=== PATIENT | male | born 1960 | race Caucasian/White ===

== ENCOUNTER 2016-11-07 17:00 | Inpatient (IN) | payer OTHER ==
[~2016-11-07] VITALS: Ht 172.7 cm; Wt 56.7 kg
--- NOTE | ~2016-11-07 | PA ---
Unit #: [id number] #: [id number] Patient: DANIEL VASQUEZ [id number] [facility] [address] [place] [address] [id number] MR#: [id number] NAME: DANIEL VASQUEZ ROOM: P214 Age: 56 Sex: M Admission Date: 11/07/2016 : 1960 Date of Assessment: Attending Physician: Bismark Anaya M.D. Admitting Physician: Bismark Anaya M.D. Primary Care Physician: Primary Care Physician No PSYCHIATRIC ASSESSMENT DATE OF SERVICE 11/08/2016. IDENTIFYING DATA Mr. Vasquez is a 56-year-old single white male, who is a resident of [place], [place], and was self-referred to the hospital on a voluntary basis. CHIEF COMPLAINT "I've been court ordered to be assessed." HISTORY OF PRESENT ILLNESS Mr. Vasquez is a 56-year-old white male with history of alcohol dependence, who was self-referred to the hospital. He reports that he has been court ordered to be assessed due to DUI and that he has been on disability and has lost significant other who from an overdose, and his father is disabled and his brother has been taking care of his father, and the patient reports artie AIDS in 09/2014, and he has 2 children that he is close to and that he has been struggling with depression and anxiety and does report feelings of hopelessness and helplessness and suicidal ideation and that he has attempted to kill himself in the garage with the car running and the car turned itself off due to carbon dioxide sensor and the patient reports having a history of suicidal thoughts and that when he was diagnosed with AIDS, he started to have suicidal thoughts and was seen to be a significant threat to himself and as such, a recommendation for inpatient level of care for safety and stabilization was made. SUBSTANCE ABUSE HISTORY The patient reports history of experimentation with methamphetamine and cannabis, but reports alcohol to be his drug of choice stating that he has been drinking a pint of whiskey a day and two beers and reports alcohol to be his drug of choice. PAST PSYCHIATRIC HISTORY The patient has a history of inpatient chemical [facility] and has been diagnosed and treated for alcohol dependence. Review of the medical records, currently he is not active in any treatment program, though he is supposed to be on a combination of Remeron, Vistaril, and Elavil. PAST MEDICAL HISTORY The patient's medical history is significant for AIDS and COPD. Unit #: [id number] #: [id number] Patient: DANIEL VASQUEZ ALLERGIES No known medication allergies. PERSONAL AND SOCIAL HISTORY A 56-year-old white male, who reports that he lives at home with his roommate and has fairly decent social support system. MENTAL STATUS EXAMINATION Young white male, who was casually dressed with fair personal hygiene, appears to be in no acute distress or discomfort. He was awake and alert with impaired attention and concentration. His mood was anxious and depressed with a congruent affect. His speech was slow and restricted in content. His thought processes were disorganized with some looseness of associations and suicidal ideations. His insight and judgment remain significantly impaired. DIAGNOSTIC IMPRESSION Psychiatric: Alcohol dependence, moderate, in acute withdrawals and alcohol-induced mood disorder. Medical: Chronic obstructive pulmonary disease and acquired immune deficiency syndrome. Stressors: Moderate psychosocial stressors. TREATMENT PLAN 1. The patient has presented with a history of mood disorder and substance abuse and has been decompensating and will need inpatient hospitalization for safety and stabilization. We will start him back on his home medications. We will adjust the medications and monitor response and make further adjustments as needed. 2. Supportive therapy was provided to the patient. ESTIMATED LENGTH OF STAY 5 to 7 days. ABILITY TO HELP SELF Limited. WILLINGNESS TO HELP SELF The patient appears to be willing to help self. STRENGTHS 1. Communicative. 2. Cooperative. PROBLEMS 1. Chronic dysphoric symptoms. 2. Poor social support system. DISCHARGE CRITERIA This will be contingent upon the patient's ability to show resolution of his depression and anxiety and his ability to stay safe to himself, particularly after discharge from the hospital. Dictated by... Nohemi Colby/alessia Unit #: [id number] #: [id number] Patient: DANIEL VASQUEZ TD: 11/08/2016 13:37 JOB #: [id number] PSYCHIATRIC ASSESSMENT Page 1 of 1 X JaclynBismark Arnold MD X PSYCHIATRIC ASSESSMENT
--- NOTE | ~2016-11-07 | PN ---
Unit #: [id number] #: [id number] Patient: DANIEL VASQUEZ [id number] [facility] [address] [place] [address] [id number] I MR#: [id number] NAME: DANIEL VASQUEZ. ROOM: P214 Age: 56 Sex: M Admission Date: 11/07/2016 : 1960 Attending Physician: Bismark Anaya M.D. Admitting Physician: Bismark Anaya M.D. Primary Care Physician: Primary Care Physician Sandra TUCKER NOTES DATE OF SERVICE 11/09/2016 DISCUSSION Mr. Vasquez is a 56-year-old white male with alcohol dependence who was seen today. Chart was reviewed and case was discussed with the staff. He was seen to be anxious, withdrawn, and seclusive to himself. He does appear to be in distress and discomfort and going through detox. Meanwhile, he has been taking the medications and tolerating them fairly well with no reported side effects. MENTAL STATUS EXAMINATION Middle-aged white male who is casually dressed with fair personal hygiene, appears to be in no acute distress or discomfort. He was awake and alert with impaired attention and concentration. His mood is anxious with congruent affect. He denies any suicidal or homicidal ideations. His insight and judgment remain slightly impaired. TREATMENT PLAN 1. We will continue him on his current medications and treatment protocol. We will monitor his response to the medications and make further adjustments as needed. 2. We will continue to follow up. Dictated by... Nohemi Colby/avanig TD: 11/10/2016 08:01 JOB #: [id number] Unit #: [id number] #: [id number] Patient: DANIEL VASQUEZ [facility] PROGRESS NOTES Page 1 of 1 X Bismark Anaya MD PROGRESS NOTE
--- NOTE | ~2016-11-07 | DS ---
Unit #: [id number] #: [id number] Patient: DANIEL SYLVESTER [id number] [facility] [address] [place] [address] [id number] I MR#: [id number] NAME: DANIEL SYLVESTER ROOM: P214 Age: 56 Sex: M Admission Date: 11/07/2016 : 1960 Discharge Date: 11/11/2016 Attending Physician: Bismark Anaya M.D. Primary Care Physician: Primary Care Physician No DISCHARGE SUMMARY IDENTIFYING DATA Mr. Sylvester is a 56-year-old single white male, who is a resident of [place], [place], and was self-referred to the hospital on a voluntary basis. DISCHARGE DIAGNOSES Psychiatric: Alcohol dependence, moderate and acute withdrawals; alcohol-induced mood disorder. Medical: Chronic obstructive pulmonary disease and human immunodeficiency virus. Stressors: Moderate psychosocial stressors. HISTORY OF PRESENT ILLNESS Please see initial psychiatric evaluation for details. PAST PSYCHIATRIC HISTORY Please see initial psychiatric evaluation for details. PAST MEDICAL HISTORY Please see initial psychiatric evaluation for details. HOSPITAL COURSE The patient was admitted to the adult chemical dependency unit at [facility] and was oriented to the hospital environment. Routine p.r.n. medications were initiated, and he was started back on his home medications and medications were adjusted and he was closely monitored. He was taking the medications regularly and was tolerating them fairly well and was able to show a decent and therapeutic response and as such, it was decided that he will be discharged home and will continue treatment on an outpatient basis. DISCHARGE MEDICATIONS None. DISCHARGE CONDITION Stable. PROGNOSIS Fair. Dictated by... Bismark Anaya M.D. Unit #: [id number] #: [id number] Patient: DANIEL SYLVESTER IAA/modl TD: 11/11/2016 07:13 JOB #: [id number] DISCHARGE SUMMARY Page 1 of 1 X Bismark Anaya MD X DISCHARGE SUMMARY
--- NOTE | ~2016-11-07 | PN ---
Unit #: [id number] #: [id number] Patient: DANIEL VASQUEZ [id number] [facility] [address] [place] [address] [id number] MR#: [id number] NAME: DANIEL VASQUEZ ROOM: P214 Age: 56 Sex: M Admission Date: 11/07/2016 : 1960 Attending Physician: Bismark Anaya M.D. Admitting Physician: Bismark Anaya M.D. Primary Care Physician: Primary Care Physician Sandra TUCKER NOTES IDENTIFYING DATA Mr. Vasquez is a 56-year-old male who was seen today and chart reviewed and his case discussed with the staff. He was anxious, withdrawn, and seclusive to himself. Meanwhile, he has been cooperating with treatment recommendations and taking medication and tolerating them fairly well with no reported side effects. MENTAL STATUS EXAMINATION Middle-aged white male, who was casually dressed with fair personal hygiene, appears to be in no acute distress or discomfort. He was awake and alert on interaction with intact orientation. His mood was anxious with a congruent affect. suicidal or homicidal ideation, visual hallucinations. . TREATMENT PLAN 1. We will continue him on his current treatment protocol. We will monitor his response to the medications and make further adjustments as needed. 2. We will continue to follow up. Dictated by... Nohemi Colby/alessia TD: 11/10/2016 13:55 JOB #: [id number] [facility] PROGRESS NOTES Page 1 of 1 X Bismark Anaya MD PROGRESS NOTE
--- NOTE | ~2016-11-07 | HP ---
Unit #: [id number] #: [id number] Patient: DANIEL SYLVESTER [id number] [place] [address] [id number] MR#: [id number] NAME: DANIEL SYLVESTER. ROOM: P214 Age: 56 Sex: M Admission Date: 11/07/2016 : 1960 Attending Physician: Bismark Anaya M.D. Admitting Physician: Bismark Anaya M.D. Primary Care Physician: Primary Care Physician No HISTORY AND PHYSICAL HISTORY OF PRESENT ILLNESS The patient is a 56-year-old male who states he is admitted due to alcohol withdrawal. He drinks (1)____ one pint of alcohol per day plus beer. PAST MEDICAL HISTORY Significant for HIV/Aids. PAST SURGICAL HISTORY Significant for right foot surgery times two. SOCIAL HISTORY Positive for smoking. Positive for alcohol and positive for a history of IV drug abuse. ALLERGIES None. FAMILY HISTORY Noncontributory. REVIEW OF SYSTEMS CONSTITUTIONAL: No fever or chills. HEENT: Denies any sore throat, ear pain or runny nose. CARDIOVASCULAR: Denies chest pain, irregular heart rhythm or palpitations. CHEST: Denies shortness of breath or cough. No hemoptysis. GASTROINTESTINAL: Denies nausea, vomiting, diarrhea or chronic constipation. ENDOCRINE: Denies history of increased thirst or urination. No recent significant weight loss or gain. GENITOURINARY: Denies dysuria, frequency, or hematuria. SKIN: Denies any rashes. HEMATOLOGIC: Denies history of increased bleeding or bruising. MUSCULOSKELETAL: Denies any hot, swollen joints. No generalized muscle pain. NEUROLOGIC: Denies problems with vision or speech. No frequent, severe headaches. No numbness, tingling or weakness in any extremities. Denies loss of bladder or bowel control. CURRENT MEDICATIONS 1. Remeron 30 mg p.o. q.h.s. Unit #: [id number] #: [id number] Patient: DANIEL SYLVESTER 2. Vistaril 50 mg p.o. q.i.d. p.r.n. 3. Elavil 50 mg p.o. q.h.s. 4. Zyrtec 10 mg p.o. daily l 5. Neurontin 800 mg p.o. t.i.d. PHYSICAL EXAMINATION GENERAL: Alert, oriented in no acute distress. VITAL SIGNS: Temperature 98.8, heart rate 97, respirations 20, blood pressure 140/95. HEIGHT: 5 feet 8 inches WEIGHT: 125 pounds SKIN: Warm and dry without rash. Tattoo to the left forearm and a scar to the right foot. HEENT: Normocephalic. TMs not viewed. Oral and nasal passages clear. Conjunctivae clear. PERRLA. EOMs intact. NECK: Supple without lymphadenopathy or thyromegaly. HEART: Regular rate and rhythm without murmur. LUNGS: Clear. ABDOMEN: Soft, nontender, without masses or hepatosplenomegaly. : Not done. EXTREMITIES: No evidence of cyanosis, clubbing or edema. Moves all without focal deficit. NEUROLOGICAL: Grossly within normal limits. Cranial Nerves: II: Visual laureano are intact. III, IV AND : Extraocular movements are intact. Pupils are equal, round and reactive to light. V: Facial sensation is grossly normal. VII: Facial movements and expression are normal. VIII: Auditory acuity grossly intact. IX, X: Uvula is midline. Phonation is normal. XI: Patient shrugs shoulders and turns head normally. XII: Tongue protrudes in the midline. Sensory and Motor Function: Sensory and motor sensation is grossly normal. Motor: moves all extremities well. Coordination: Gait is normal. Deep Tendon Reflexes: Intact. IMPRESSION Psychiatric admission. RECOMMENDATIONS Psychiatric, per psychiatrist. MEDICAL: I see no contraindications to participating in facility's activities. MEDICAL PROGNOSIS Good. Dictated by... Nesha Rendon/alex TD: 11/09/2016 02:59 JOB #: [id number] Unit #: [id number] #: [id number] Patient: DANIEL SYLVESTER HISTORY AND PHYSICAL Page 1 of 1 X Keisha Grullon APR X HISTORY AND PHYSICAL
[2016-11-08 12:13] LABS: BASOPHIL# 0.1 X10e3 (0-0.3); BASOPHIL% 1.7 % (0-2.5); EOSINOPHIL# 0.1 X10e3 (0-0.7); EOSINOPHIL% 3.2 % (0.0-7.0); HEMOGLOBIN 12.6 gm/dL (13.0-16.0); LYMPHOCYTE# 1.1 X10e3 (1.0-3.5); MEAN CELL VOLUME 97.1 FL (83-96); MEAN CORPUSCULAR HEMOGLOBIN 32.3 PG (28-34); MEAN CORPUSCULAR HGB CONC 33.2 g/dL (30-36); MEAN PLATELET VOLUME 7.2 FL (6.5-11.5); MONOCYTE# 0.4 X10e3 (0-1.0); MONOCYTE% 10.3 % (3.0-12.0); NEUTROPHIL# 1.8 X10e3 (1.5-7.1); NEUTROPHIL% 53.8 % (40-75); PLATELET COUNT 149 X10e3 (140-420); RED BLOOD COUNT 3.92 X10e (3.90-5.60); RED CELL DISTRIBUTION WIDTH 14.5 % (11.0-15.5); WHITE BLOOD COUNT 3.4 X10e3 (4.0-10.5)
[2016-11-08 12:14] LABS: DIFF IND NO
[2016-11-08 12:25] LABS: ALBUMIN SERUM 3.6 g/dL (3.5-5.0); BILIRUBIN,TOTAL 0.4 mg/dL (0.2-2.0); BUN/CREATININE RATIO 17.5; CALCIUM SERUM 9.3 mg/dL (8.4-10.2); CREATININE SERUM 0.8 mg/dL (0.6-1.4); GLOM FILT RATE Estimated 101.3 mL/min (>60); POTASSIUM 4.1 mmol/L (3.5-5.1); PROTEIN TOTAL SERUM 6.5 g/dL (6.0-8.3)
== END 2016-11-11 13:00 | disposition home or self-care (01) | DRG 896 ==
LOC: P2S 20:23
PROVIDERS: Psychiatry & Neurology Psychiatry
PROC: HZ2ZZZZ Detoxification Services for Substance Abuse Treatment (ICD-10-PCS; principal; 2016-11-07)
DX: F10.239 Alcohol dependence with withdrawal, unspecified (principal); B20 Human immunodeficiency virus [HIV] disease; F10.24 Alcohol dependence with alcohol-induced mood disorder; J44.9 Chronic obstructive pulmonary disease, unspecified
CPT/HCPCS: 80053; 85025; 86592